=== PATIENT | female | born 1955 | race Caucasian/White ===

== ENCOUNTER 2019-11-10 06:02 | Day surgery (SDC) | payer OTHER ==
[~2019-11-10] VITALS: Ht 152.4 cm; Wt 73.5 kg
[2019-11-10] MEDS ORDERED: LIDOCAINE 2% 100 MG/5 ML UJET TP ONE (07:30)
[2019-11-10] MEDS ORDERED: fentaNYL 0.05 MG/ML VIAL ONE (07:30)
[2019-11-10] MEDS ORDERED: fentaNYL 0.05 MG/ML VIAL IVP ONE (08:10)
== END 2019-11-10 08:45 | disposition home or self-care (01) ==
LOC: MDS 06:02 → MMU 06:08 → MDS 08:45
PROVIDERS: ATTEND Internal Medicine Gastroenterology
DX: Z12.11 Encounter for screening for malignant neoplasm of colon (principal); E66.9 Obesity, unspecified; Z68.31 Body mass index [BMI] 31.0-31.9, adult
CPT/HCPCS: 45378; J3010